=== PATIENT | female | born 1980 | race Hispanic/Latino ===

== ENCOUNTER 2016-12-09 15:13 | Emergency (ER) | payer OTHER, MEDICAID ==
[2016-12-09 15:44] VITALS: BP 114/80
[2016-12-09] MEDS ORDERED: FLEXERIL PO ONE (19:43)
[2016-12-09] MEDS ORDERED: TORADOL IM ONE (19:43)
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
== END 2016-12-09 21:11 | disposition home or self-care (01) ==
LOC: ED 15:13
DX: M79.1 Myalgia (principal); V49.59XA Passenger injured in collision with other motor vehicles in traffic accident, initial encounter; X58.XXXA Exposure to other specified factors, initial encounter; Y93.9 Activity, unspecified; Y92.9 Unspecified place or not applicable; Y99.9 Unspecified external cause status
CPT/HCPCS: 71100; 96372; 99283; J1885